=== PATIENT | male | born 1945 | race Asian ===

== ENCOUNTER 2024-03-07 08:24 | Emergency (ER) | payer MEDICARE, MEDICAID ==
[~2024-03-07] VITALS: Ht 160 cm; Wt 52.3 kg
[2024-03-07] MEDS ORDERED: ASPI-4 PO (08:36)
[2024-03-07] MEDS ORDERED: ATOR20TA PO (08:36)
[2024-03-07] MEDS ORDERED: METF-1211 PO (08:36)
[2024-03-07] MEDS ORDERED: LISI-658 PO (08:36)
[2024-03-07] MEDS ORDERED: CETI-450 PO (08:36)
[2024-03-07] MEDS ORDERED: ACET-2080 PO (08:36)
[2024-03-07] MEDS ORDERED: AMLO-257 PO (08:36)
[2024-03-07 09:11] LABS: GLUCOMETER DEV NAME(LOC) ERT.6; GLUCOSE,POINT OF CARE 141 MG/DL (70-110)
[2024-03-07 13:28] LABS: BASOPHILS % (AUTO) 0.5 % (0.0-2.0); EOSINOPHILS % (AUTO) 1.1 % (1.0-6.0); HEMOGLOBIN 15.6 g/dL (13.5-17.5); LYMPHOCYTES # (AUTO) 0.9 K/uL (1.0-4.8); LYMPHOCYTES % (AUTO) 13.3 % (22.0-44.0); MEAN CORPUSCULAR HEMOGLOBIN 30.6 pg (26.0-34.0); MEAN CORPUSCULAR HGB CONC 33.1 G/dL (31.0-37.0); MEAN CORPUSCULAR VOLUME 92 fL (80-100); MONOCYTES # (AUTO) 0.6 K/uL (0.1-1.0); MONOCYTES % (AUTO) 8.5 % (2.0-9.0); NEUTROPHILS # (AUTO) 5.2 K/uL (1.8-7.7); NEUTROPHILS % (AUTO) 76.6 % (40.0-70.0); PLATELET COUNT (AUTO) 252 K/uL (150-450); RED BLOOD CELL COUNT(AUTO) 5.09 MIL/uL (4.50-5.90); RED CELL DISTRIBUTION WIDTH 13.8 % (11.5-14.5); WHITE BLOOD COUNT (AUTO) 6.8 K/uL (4.5-11.0)
[2024-03-07 13:38] LABS: CALCIUM, TOTAL 9.3 mg/dL (8.8-10.5); CREATININE 1.81 mg/dL (0.60-1.30); POTASSIUM 4.3 mmol/L (3.5-5.1)
[2024-03-07 13:45] LABS: ALBUMIN 3.5 g/dL (3.4-5.0); BILIRUBIN,DIRECT 0.1 mg/dL (0.00-0.20); BILIRUBIN,TOTAL 0.6 mg/dL (0.1-1.0); TOTAL PROTEIN, SERUM 7.8 g/dL (6.4-8.2)
[2024-03-07] MEDS: LIDOCAINE 2% VISCOUS 15 ML SOLUTION UDCUP PO ONE (15:24)
[2024-03-07] MEDS: SODIUM CHLORIDE 0.9% 1,000 ML IV ONE (15:24)
[2024-03-07 16:31] VITALS: BP 138/79; PULSE 88; RESP 18; TEMP 97.8; O2SAT 98
== END 2024-03-07 17:19 | disposition home or self-care (01) ==
LOC: EMS 08:30
DX: K13.79 Other lesions of oral mucosa (principal); E87.1 Hypo-osmolality and hyponatremia; E11.9 Type 2 diabetes mellitus without complications; I10 Essential (primary) hypertension; E78.00 Pure hypercholesterolemia, unspecified; Z79.899 Other long term (current) drug therapy
CPT/HCPCS: 99283; 96360; 80048; 80076; 82962; 85025; 36415; J7030